=== PATIENT | male | born 1940 | race Two or more races ===

== ENCOUNTER 2021-05-19 15:52 | Inpatient (IN) | payer OTHER, MEDICAID ==
[~2021-05-19] VITALS: Ht 167.6 cm; Wt 78.0 kg
[2021-05-19] MEDS ORDERED: GLUCAGON HYDROCHLORIDE (RDNA) 1 MG VIAL IV ONE (16:30)
[2021-05-19] MEDS ORDERED: hydrALAZINE HCL 20 MG/ML VL IV ONE (16:30)
[2021-05-19] MEDS ORDERED: ACETAMINOPHEN 325 MG TAB PO PRN (21:00)
[2021-05-19] MEDS ORDERED: MORPHINE SULFATE INJECTION 2 MG/ML SYRG IV PRN (21:00)
[2021-05-19] MEDS ORDERED: NITROGLYCERIN 0.4 MG SL TAB SL PRN (21:00)
[2021-05-19] MEDS ORDERED: ONDANSETRON HCL 4 MG/2 ML VIAL IV PRN (21:00)
[2021-05-19 21:06] LABS: Albumin 3.4 g/dL (3.4-5.0); BUN/Creatinine Ratio 11.6; Calcium 8.8 mg/dL (8.5-10.1); Potassium 3.6 mmol/L (3.5-5.1)
[2021-05-19 21:11] LABS: Bilirubin, Total 0.4 mg/dL (0.2-1.0); Total Protein 7.4 g/dL (6.4-8.2)
[2021-05-19] MEDS: hydrALAZINE HCL 25 MG TAB PO PRN (21:28)
[2021-05-19] MEDS ORDERED: TEMAZEPAM 15 MG CAP PO PRN (22:00)
[2021-05-19 22:29] LABS: Basophils # (auto) 0.1 10 ^3/uL (0-0.2); Eosinophils # (auto) 0.4 10 ^3/uL (0-0.8); Eosinophils % (auto) 5.1 % (0.0-7.0); Hematocrit 42.3 % (41.0-53.0); Hemoglobin 14.2 g/dL (13.5-17.5); Lymphocytes # (auto) 2.6 10 ^3/uL (0.4-5.4); Lymphocytes % (auto) 32.1 % (10.0-50.0); Mean Corpuscular Hgb Conc. 33.7 g/dL (32.0-36.0); Monocytes # (auto) 0.7 10 ^3/uL (0-1.3); Monocytes % (auto) 8.3 % (0.0-12.0); Neutrophils # (auto) 4.3 10 ^3/uL (1.6-8.6); Neutrophils % (auto) 53.5 % (37.0-80.0); Nucleated Red Blood Cells % 0.4 %; Red Blood Cells 4.91 10^6/uL (4.5-5.90); Red Cell Distribution Width 13.2 % (11.8-14.3); White Blood Cell 8.1 10^3/uL (4.4-10.8)
[2021-05-19] MEDS: ATORVASTATIN 20 MG TAB PO SCH (22:42)
[2021-05-19] MEDS: BENAZEPRIL HCL 10 MG TAB PO SCH (22:44)
[2021-05-19 22:48] LABS: INR 1.02 (0.9-1.15); Partial Thromboplastin Time 26.8 sec (23.6-33.0)
[2021-05-20] MEDS ORDERED: ENALAPRIL MALEATE 2.5 MG TAB PO ONE (01:00)
[2021-05-20 03:48] LABS: Basophils # (auto) 0 10 ^3/uL (0-0.2); Basophils % (auto) 0.7 % (0.0-2.0); Eosinophils # (auto) 0.4 10 ^3/uL (0-0.8); Eosinophils % (auto) 6.5 % (0.0-7.0); Hematocrit 42.4 % (41.0-53.0); Hemoglobin 14.1 g/dL (13.5-17.5); Lymphocytes # (auto) 1.9 10 ^3/uL (0.4-5.4); Lymphocytes % (auto) 29.5 % (10.0-50.0); Mean Corpuscular Hemoglobin 28.5 pg (28.0-32.0); Mean Corpuscular Hgb Conc. 33.2 g/dL (32.0-36.0); Mean Corpuscular Volume 85.8 fL (80.0-100.0); Monocytes # (auto) 0.5 10 ^3/uL (0-1.3); Monocytes % (auto) 7.7 % (0.0-12.0); Neutrophils # (auto) 3.7 10 ^3/uL (1.6-8.6); Neutrophils % (auto) 55.6 % (37.0-80.0); Nucleated Red Blood Cells % 0.1 %; Red Blood Cells 4.94 10^6/uL (4.5-5.90); Red Cell Distribution Width 13.2 % (11.8-14.3); White Blood Cell 6.6 10^3/uL (4.4-10.8)
[2021-05-20 04:10] LABS: BUN/Creatinine Ratio 12.1; Calcium 8.7 mg/dL (8.5-10.1); Potassium 3.7 mmol/L (3.5-5.1)
[2021-05-20] MEDS ORDERED: cloNIDine HCL 0.1 MG TAB PO ONE (06:00)
[2021-05-20] MEDS: BENAZEPRIL HCL 10 MG TAB PO SCH ×2 (10:35→23:17)
[2021-05-20] MEDS: PANTOPRAZOLE 40 MG TAB PO SCH (10:35)
[2021-05-20] MEDS: ENOXAPARIN SOD 40 MG/0.4 ML SYRINGE SC SCH (10:36)
[2021-05-20] MEDS: ATORVASTATIN 20 MG TAB PO SCH (23:17)
[2021-05-21] MEDS: ENOXAPARIN SOD 40 MG/0.4 ML SYRINGE SC SCH (10:00)
[2021-05-21] MEDS: PANTOPRAZOLE 40 MG TAB PO SCH (10:00)
[2021-05-21] MEDS: BENAZEPRIL HCL 10 MG TAB PO SCH ×2 (10:00→22:30)
[2021-05-21] MEDS ORDERED: LEVOTHYROXINE SODIUM 112 MCG TAB PO ONE (11:45)
[2021-05-21] MEDS: hydrALAZINE HCL 25 MG TAB PO PRN (18:26)
[2021-05-21] MEDS: ATORVASTATIN 20 MG TAB PO SCH (22:29)
[2021-05-22] MEDS: LEVOTHYROXINE SODIUM 112 MCG TAB PO SCH (08:21)
[2021-05-22] MEDS: BENAZEPRIL HCL 10 MG TAB PO SCH ×2 (10:45→22:25)
[2021-05-22] MEDS: ENOXAPARIN SOD 40 MG/0.4 ML SYRINGE SC SCH (10:45)
[2021-05-22] MEDS: hydrALAZINE HCL 25 MG TAB PO PRN (12:31)
[2021-05-22] MEDS ORDERED: fentaNYL CITRATE 100 MCG/2 ML VL ONE (14:42)
[2021-05-22] MEDS ORDERED: VANCOMYCIN HCL 1000 MG VL ONE (14:42)
[2021-05-22] MEDS ORDERED: MIDAZOLAM HCL 2MG/2ML 2ml VIAL (1mg/ml) ONE (14:43)
[2021-05-22] MEDS ORDERED: LIDOCAINE 2%HCL (LOCAL ANESTH.) INJ 20ML MDV ONE (14:43)
[2021-05-22] MEDS ORDERED: VANCOMYCIN 1GM/250ML 250 ML IV ONE (14:43)
[2021-05-22] MEDS ORDERED: NITROGLYCERIN 0.4MG/DOSE SPRAY 4.9GM ONE (15:05)
[2021-05-22] MEDS ORDERED: HYDROcodone-ACET 5/325MG TAB PO PRN (16:00)
[2021-05-22 17:44] VITALS: BP 157/70
[2021-05-22] MEDS: ceFAZolin 1GM/50ML 50 ML IV SCH (18:09)
[2021-05-22] MEDS ORDERED: LISI20TA28 PO (19:01)
[2021-05-22] MEDS ORDERED: CHLO25TA2 PO (19:01)
[2021-05-22] MEDS ORDERED: METO-158 PO ×2 (19:01)
[2021-05-22] MEDS ORDERED: ATOR80TA PO (19:01)
[2021-05-22 22:00] VITALS: BP 187/92
[2021-05-22] MEDS ORDERED: VANCOMYCIN 1GM/250ML 250 ML IV SCH (22:00)
[2021-05-22] MEDS: ATORVASTATIN 20 MG TAB PO SCH (22:24)
[2021-05-23] MEDS: ceFAZolin 1GM/50ML 50 ML IV SCH ×2 (01:13→10:07)
[2021-05-23] MEDS: hydrALAZINE HCL 25 MG TAB PO PRN ×2 (01:43→07:02)
[2021-05-23] MEDS ORDERED: VANCOMYCIN 1GM/250ML 250 ML IV SCH ×2 (02:30→04:00)
[2021-05-23 05:00] VITALS: BP 161/82
[2021-05-23] MEDS: LEVOTHYROXINE SODIUM 112 MCG TAB PO SCH (07:02)
[2021-05-23 09:00] VITALS: BP 144/74
[2021-05-23] MEDS: BENAZEPRIL HCL 10 MG TAB PO SCH ×2 (10:08→22:37)
[2021-05-23 13:00] VITALS: BP 157/74
[2021-05-23 13:03] VITALS: BP 157/74
[2021-05-23 15:15] LABS: Potassium 3.7 mmol/L (3.5-5.1)
[2021-05-23 15:17] LABS: BUN/Creatinine Ratio 13.4
[2021-05-23 17:00] VITALS: BP 158/88
[2021-05-23 22:00] VITALS: BP 163/70
[2021-05-23] MEDS: ATORVASTATIN 20 MG TAB PO SCH (22:37)
[2021-05-24 05:00] VITALS: BP 176/80
[2021-05-24] MEDS: LEVOTHYROXINE SODIUM 112 MCG TAB PO SCH (06:35)
[2021-05-24] MEDS: hydrALAZINE HCL 25 MG TAB PO PRN (06:35)
[2021-05-24 09:00] VITALS: BP 146/81
[2021-05-24] MEDS: BENAZEPRIL HCL 10 MG TAB PO SCH (10:13)
[2021-05-24 13:03] VITALS: BP 154/69
== END 2021-05-24 15:00 | disposition home or self-care (01) | DRG 244 ==
LOC: ER 15:52 → EDBD 15:52 → OVERFLOW 21:00 → TELE-CENTR 05-22 17:05
PROVIDERS: ADMIT Nurse Practitioner; ATTEND Family Medicine
PROC: 0JH606Z Insertion of Pacemaker, Dual Chamber into Chest Subcutaneous Tissue and Fascia, Open Approach (ICD-10-PCS; principal; 2021-05-22)
PROC: 02HK3JZ Insertion of Pacemaker Lead into Right Ventricle, Percutaneous Approach (ICD-10-PCS; 2021-05-22)
PROC: 02H63JZ Insertion of Pacemaker Lead into Right Atrium, Percutaneous Approach (ICD-10-PCS; 2021-05-22)
DX: R00.1 Bradycardia, unspecified (principal); I16.0 Hypertensive urgency; E11.9 Type 2 diabetes mellitus without complications; I10 Essential (primary) hypertension; E03.9 Hypothyroidism, unspecified; R42 Dizziness and giddiness; Z20.822 Contact with and (suspected) exposure to COVID-19; Z79.890 Hormone replacement therapy
CPT/HCPCS: 33208; 36415; 71045; 80048; 80053; 84443; 84484; 85025; 85610; 85730; 87426; 93005; 93306; 96374; 96375; 99152; 99153; 99291; C1785; G0378; J0690; J2250